=== PATIENT | female | born 1960 ===

== ENCOUNTER 2024-03-13 10:34 | Emergency (ER) | payer OTHER, SELFPAY ==
--- OUTSIDE RECORDS SUMMARY | 2024-03-13 10:39 | XMS REPORT | Continuity of Care Document ---
Author Name Unknown Address [address] [place] [address] [facility] Address [address] [place] [address] Care Team Providers Care Stone Breaker Name Role Phone Yancy Menjivar Primary Care Physi mike HANS FITZGERALD Attending Clinician Unava ilable SISSON_C Attending Clinician Unavailable [facility]_Black_D Attending Clinician Unavailab MOLLY Gunn Attending Clinician Unavailable Payam Olson Attending Clinician [phone] JORDAN QUISPE Attending Clinician Unavailable Naomy Villar Attending Clinician [phone] Radiology Attending Clinician Unavailable RADIOLOGY Attending Clinician Unavailable Hans Fitzgerald MD Attending Clinician [phone] Doctor Unassigned, [place] Attending Clinician U navailable Only, Adc Test Attending Clinician Unavailable Elsa Rivera MA Attending Clinician Unava ilable Pob, Adc Lab Main Attending Clinician UnavailHANS Trinidad Admitting Clinician Unava ilable SISSON_C Admitting Clinician Unavailable [facility]_Black_D Admitting Clinician Unavailab yuki Fitzgerald MD, Hans [place] Admitting Clinician [phone] Payers Payer Name Policy Type Policy Number Effective Date Expirati on Date Source [employer]BSTX PPO AND OUT OF STATE [id number] 2020 00:00:00 [employer] CHOICE POS II [id number] 2017 00:00:00 [place] [id number] 2020 00:00:00 Problems Condition Name Condition Details Condition Category Status Onset Date Resolution Date Last Treatment Date Treating Clinician Comments Source Hypothyroi dism Hypothyroi dism Problem Active 12-14 00:00: 00 [facility] Hyperchole sterolemia Hyperchole sterolemia Problem Active 12-14 00:00: 00 [facility] Hypertensi ve disorder Hypertensi ve Disorder Problem Active 12-14 00:00: 00 [facility] Closed displaced fracture of olecranon process with intraartic ular extension of right ulna Closed displaced fracture of olecranon process with intraartic ular extension of right ulna Disease Active 03-02 00:00: 00 [facility] Closed pelvic ring fracture Closed pelvic ring fracture Disease Active 03-02 00:00: 00 [facility] No known active problems No known active problems Disease [facility] Allergies, Adverse Reactions, Alerts Allergy Name Allergy Type Status Severity Reaction(s) Onset Date Inactive Date Treating Clinician Comments Source Insect Extract Allergy Skin Test Allergy to substanc e Active 02-25 00:00: 00 Other reaction( s): Other (see comments) [facility] NO KNOWN ALLERGIE S Drug Class Active [facility] Social History Social Habit Start Date Stop Date Quantity Comments Source Exposure to SARS-CoV-2 (event) 2022-03-24 00:00:00 2022-04-03 12:33:00 Not sure [facility] Alcohol intake 2020-01-22 00:00:00 2020-01-22 00:00:00 Current drinker of alcohol (finding) [facility] Tobacco use and exposure 2020-01-22 00:00:00 2020-01-22 00:00:00 Never used [facility] Sex Assigned At [birth year] 00:00:00 [facility] Smoking Status Start Date Stop Date Source Tobacco smoking consumption unknown [facility] Never smoker [facility] Medications Ordered Medication Name Filled Medication Name Start Date Stop Date Current Medication? Ordering Clinician Indication Dosage Frequency Signature (SIG) Comments Components Source gabapentin (Neurontin) 300 MG capsule 03-06 00:00: 00 04-06 04:59 :00 No [id number] 300mg [id number] 3D Take 1 capsule (300 mg total) by mouth in the morning and 1 capsule (300 mg total) at noon and 1 capsule (300 mg total) in the evening. [facility] methocarbam ol (Robaxin) 500 MG tablet 03-06 00:00: 00 03-17 04:59 :00 No [id number] 500mg Q.[id number] 3D Take 1 tablet (500 mg total) by mouth in the morning and 1 tablet (500 mg total) at noon and 1 tablet (500 mg total) in the evening. Do all this for 10 days. [facility] acetaminoph en-codeine (TYLENOL/CO DEINE #3) 300-30 MG tablet 03-06 00:00: 00 03-17 04:59 :00 No [id number] 1{tbl} Q6H Take 1 tablet by mouth every 6 (six) hours if needed for severe pain for up to 10 days. [facility] Levothyroxi ne 75 mcg capsule 01-20 17:28: 22 Yes Take by mouth. [facility] morpHINE injection 2 mg 01-20 16:10: 58 Yes 2mg 2 mg, Slow IV Push, Q5MIN PRN, 5 doses, Starting Sun01/21/20 at 1110, Until Discontinu ed, Routine, Pain (scale 4-6), PACU [facility] ondansetron (ZOFRAN (PF)) injection 4 mg 01-20 16:10: 58 Yes 4mg 4 mg, Slow IV Push, PRN, 1 dose, Starting Sun01/21/20 at 1110, Until Discontinu ed, Routine, Nausea and Vomiting (N/V), PACU [facility] sodium chloride 0.9 % irrigation solution 01-20 14:26: 00 Yes PRN, Starting Sun01/21/20 at 0926, Until Discontinu ed, Intra-op [facility] lactated ringers IV infusion 1,000 mL 01-20 12:30: 00 01-20 12:27 :00 No 1000mL at 20 mL/hr, 1,000 mL, IV Infusion, ONCE, 1 dose, Sun01/21/20 at 0730, Routine, DSU Pre-op [facility] atorvastati n 40 mg tablet atorvastati n 40 mg tablet No atorvastat in 40 mg tablet [facility] clonazepam 0.5 mg tablet Take 1 tablet 3 times a day by oral route as needed. clonazepam 0.5 mg tablet Take 1 tablet 3 times a day by oral route as needed. No 1 TID clonazepam 0.5 mg tablet Take 1 tablet 3 times a day by oral route as needed. [facility] cyclobenzap rine 5 mg tablet cyclobenzap rine 5 mg tablet No cyclobenza laura 5 mg tablet [facility] fenofibrate nanocrystal lized 48 mg tablet fenofibrate nanocrystal lized 48 mg tablet No fenofibrat e nanocrysta llized 48 mg tablet [facility] levothyroxi ne 50 mcg tablet levothyroxi ne 50 mcg tablet No levothyrox ine 50 mcg tablet [facility] lisinopril 5 mg tablet lisinopril 5 mg tablet No lisinopril 5 mg tablet [facility] meloxicam 7.5 mg tablet TAKE 1 TABLET BY MOUTH ONCE DAILY meloxicam 7.5 mg tablet TAKE 1 TABLET BY MOUTH ONCE DAILY No meloxicam 7.5 mg tablet TAKE 1 TABLET BY MOUTH ONCE DAILY [facility] sertraline 25 mg tablet Take 1 tablet every day by oral route for 60 days. sertraline 25 mg tablet Take 1 tablet every day by oral route for 60 days. No 1 Q1D sertraline 25 mg tablet Take 1 tablet every day by oral route for 60 days. [facility] triamcinolo ne acetonide 0.025 % topical cream APPLY CREAM TOPICALLY TO AFFECTED AREA TWICE DAILY NEEDED FOR ITCHY RASH triamcinolo ne acetonide 0.025 % topical cream APPLY CREAM TOPICALLY TO AFFECTED AREA TWICE DAILY NEEDED FOR ITCHY RASH No triamcinol one acetonide 0.025 % topical cream APPLY CREAM TOPICALLY TO AFFECTED AREA TWICE DAILY NEEDED FOR ITCHY RASH [facility] atorvastati n 40 mg tablet TAKE 1 TABLET BY MOUTH ONCE DAILY atorvastati n 40 mg tablet TAKE 1 TABLET BY MOUTH ONCE DAILY No atorvastat in 40 mg tablet TAKE 1 TABLET BY MOUTH ONCE DAILY [facility] compounded medication Semaglutide /b12 sq qw compounded medication Semaglutide /b12 sq qw No compounded medication Semaglutid e/b12 sq qw [facility] levothyroxi ne 50 mcg tablet TAKE 1 TABLET BY MOUTH ONCE DAILY ON AN EMPTY STOMACH FOR THYROID levothyroxi ne 50 mcg tablet TAKE 1 TABLET BY MOUTH ONCE DAILY ON AN EMPTY STOMACH FOR THYROID No levothyrox ine 50 mcg tablet TAKE 1 TABLET BY MOUTH ONCE DAILY ON AN EMPTY STOMACH FOR THYROID [facility] levothyroxi ne 75 mcg tablet TAKE 1 TABLET BY MOUTH ONCE DAILY levothyroxi ne 75 mcg tablet TAKE 1 TABLET BY MOUTH ONCE DAILY No levothyrox ine 75 mcg tablet TAKE 1 TABLET BY MOUTH ONCE DAILY [facility] lisinopril lisinopril No lisinopril [facility] lisinopril 5 mg tablet TAKE 1 TABLET BY MOUTH ONCE DAILY lisinopril 5 mg tablet TAKE 1 TABLET BY MOUTH ONCE DAILY No lisinopril 5 mg tablet TAKE 1 TABLET BY MOUTH ONCE DAILY [facility] ondansetron 4 mg disintegrat ing tablet Place 2 tablets twice a day by translingua l route for 10 days. ondansetron 4 mg disintegrat ing tablet Place 2 tablets twice a day by translingua l route for 10 days. No 2 BID ondansetro n 4 mg disintegra ting tablet Place 2 tablets twice a day by translingu al route for 10 days. [facility] sertraline 50 mg tablet TAKE 1 TABLET BY MOUTH ONCE DAILY sertraline 50 mg tablet TAKE 1 TABLET BY MOUTH ONCE DAILY No sertraline 50 mg tablet TAKE 1 TABLET BY MOUTH ONCE DAILY [facility] Vital Signs Vital Name Observation Time Observation Value Comments Sriram candelario BMI (Body Mass Index) 2023-10-11 00:00:00 27.7 kg/m2 [facility] Body Weight 2023-10-11 00:00:00 2426 [oz_av] [facility] Height 2023-10-11 00:00:00 62 [in_i] [facility] BP Diastolic 2022-12-14 00:00:00 81 mm[Hg] [facility] Height 2022-12-14 00:00:00 62 [in_i] [facility] BMI (Body Mass Index) 2022-12-14 00:00:00 30.1 kg/m2 [facility] BP Systolic 2022-12-14 00:00:00 150 mm[Hg] [facility] Body Weight 2022-12-14 00:00:00 2634 [oz_av] [facility] BP Diastolic 2021-10-13 00:00:00 86 mm[Hg] [facility] Height 2021-10-13 00:00:00 63 [in_i] [facility] BMI (Body Mass Index) 2021-10-13 00:00:00 28.8 kg/m2 [facility] BP Systolic 2021-10-13 00:00:00 131 mm[Hg] [facility] Body Weight 2021-10-13 00:00:00 162.4 [lb_av] [facility] BP Diastolic 2021-09-01 00:00:00 82 mm[Hg] [facility] Height 2021-09-01 00:00:00 63 [in_i] [facility] BMI (Body Mass Index) 2021-09-01 00:00:00 29.1 kg/m2 [facility] BP Systolic 2021-09-01 00:00:00 122 mm[Hg] [facility] Body Weight 2021-09-01 00:00:00 164 [lb_av] [facility] Systolic blood pressure 2020-01-21 17:10:00 128 mm[Hg] [facility] Diastolic blood pressure 2020-01-21 17:10:00 76 mm[Hg] [facility] Heart rate 2020-01-21 17:10:00 79 /min [facility] Respiratory rate 2020-01-21 17:10:00 13 /min [facility] Oxygen saturation in Arterial blood by Pulse oximetry 2020-01-21 17:10:00 96 /min [facility] Body temperature 2020-01-21 16:14:00 36.5 Anna [facility] Body weight 2020-01-21 12:22:00 72.576 kg [facility] BMI 2020-01-21 12:22:00 29.26 kg/m2 [facility] Body height 2020-01-20 15:00:00 157.5 cm [facility] Procedures Procedure Date / Time Performed Performing Clinician Source MAMMO, screening, digital, bilateral 2021-09-01 00:00:00 [facility] US PELVIS COMPLETE WITH TRANSVAGINAL 2020-06-18 16:51:30 Requisition, Paper [facility] FL TIME OR (NON-REPORTABLE) 2020-01-21 15:46:36 Hans Fitzgerald [facility] DAY SURGERY - ADC 2020-01-21 05:01:00 Doctor Joan ssigned, [place] [facility] CONSENT/REFUSAL FOR DIAGNOSIS AND TREATMENT 2020-01-19 19:34:40 Doctor Unassigned, [place] [facility] ASSIGNMENT OF BENEFITS 2020-01-19 19:34:26 Docto r Unassigned, [place] [facility] Procedure on Elbow 2018-07-09 00:00:00 [facility] 2011-07-09 [facility] 1987-06-07 00:00:00 [facility] Caesarean Section 1985-08-04 00:00:00 [facility] Caesarean Section 1982-12-12 00:00:00 [facility] Plan of Care Planned Activity Planned Date Details Comments Source Diagnostic Test Pending 2021-09-01 00:00:00 Cytomegalovirus Ab [Titer] in Serum or Plasma by Latex agglutination [code = 5121-9] [facility] Diagnostic Test Pending 2021-09-01 00:00:00 Weight of 24 hour Specimen [code = 3153-4] [facility] Encounters Start Date/Time End Date/Time Encounter Type Admission Type Attending Clinicians Care Facility Care Department Encounter ID Source 2022-05-22 12:13:55 Outpatient [facility] [id number] [facility] 2021-08-03 14:28:37 Outpatient [facility] [id number] [facility] 2021-05-06 06:30:06 Outpatient HANS CALVERT [facility] [id number] [facility] 2023-10-11 00:00:00 2023-10-11 00:00:00 Syeda Arriaza, MSN, SHAFTING CLEANER, TREE FELLER-C: [address], [address] [place] [address] , Ph. MIGDALIADeepali [facility], Syeda Arriaza, MSN, TREE FELLER-C [id number] 2023-09-12 00:00:00 2023-09-12 00:00:00 [facility] [id number] 2023-08-09 00:00:00 2023-08-09 00:00:00 Outpatient [facility] [id number] [facility] 2023-08-02 00:00:00 2023-08-02 00:00:00 Outpatient SISSON_C [facility] [id number] [facility] 2023-06-06 00:00:00 2023-06-06 00:00:00 Outpatient SISSON_C [facility] [id number] 2023-04-27 00:00:00 2023-04-27 00:00:00 [facility] [id number] 2023-02-05 00:00:00 2023-02-05 00:00:00 Outpatient SISSON_C [facility] [id number] [facility] 2022-12-14 00:00:00 2022-12-14 00:00:00 Outpatient SISSON_C [facility] [id number] [facility] 2022-12-14 00:00:00 2022-12-14 00:00:00 Syeda Arriaza, MSN, SHAFTING CLEANER, TREE FELLER-C: [address], [address], [place] [address] , Ph. [facility], Syeda Arriaza, MSN, TREE FELLER-C [id number] [facility] 2022-11-23 00:00:00 2022-11-23 00:00:00 Outpatient [facility]_ Black_D PRIV PRIV [id number] [facility] 2022-11-21 00:00:00 2022-11-21 00:00:00 Outpatient SISSON_C [facility] [id number] [facility] 2022-11-17 00:00:00 2022-11-17 00:00:00 Outpatient [facility]_ Black_D PRIV PRIV [id number] [facility] 2022-11-17 00:00:00 2022-11-17 00:00:00 Outpatient [facility]_ Black_D PRIV PRIV [id number] [facility] 2022-11-17 00:00:00 2022-11-17 00:00:00 Outpatient [facility]_ Black_D PRIV PRIV [id number] [facility] 2022-05-22 13:00:00 2022-05-22 13:24:12 Outpatient [facility] [id number] [facility] 2022-05-22 12:45:00 2022-05-22 13:24:12 Outpatient MOLLY SPAULDING [facility] [id number] [facility] 2022-04-03 12:45:00 2022-04-03 13:19:43 Office Visit Molly Spaulding [facility] [id number] [id number] [facility] 2022-04-03 12:30:00 2022-04-03 13:19:43 Outpatient [facility] [id number] [facility] 2022-03-06 12:30:00 2022-03-06 12:30:00 Office Visit Payam Lamar [facility] [id number] [id number] [facility] 2022-03-06 12:15:00 2022-03-06 12:24:25 Outpatient [facility] [id number] [facility] 2022-02-19 09:00:00 2022-02-19 09:00:00 Outpatient JORDAN QUISPE [facility] [id number] [facility] 2021-12-21 02:04:00 2021-12-21 02:04:00 Outpatient [facility] Black_D PRIV PRIV [id number] [facility] 2021-12-21 00:00:00 2021-12-21 00:00:00 Outpatient [facility]_ Black_D PRIV PRIV [id number] [facility] 2021-12-16 04:55:00 2021-12-16 04:55:00 Outpatient [facility]_ Black_D PRIV PRIV [id number] [facility] 2021-11-18 06:43:00 2021-11-18 06:43:00 Outpatient [facility]_ Black_D PRIV PRIV [id number] [facility] 2021-10-13 01:24:00 2021-10-13 01:24:00 Outpatient [facility]_ Black_D PRIV PRIV [id number] [facility] 2021-10-13 00:00:00 2021-10-13 00:00:00 Outpatient Naomy Villar [facility] PRIV [id number] 2021-10-13 00:00:00 2021-10-13 00:00:00 Naomy Villar MD: [address] [place] [address] , Ph. [facility] - GC_[facility]_ [place] [facility] [id number] [facility] 2021-09-02 12:57:00 2021-09-02 12:57:00 Outpatient [facility]_ Black_D PRIV PRIV [id number] [facility] 2021-09-01 04:58:00 2021-09-01 04:58:00 Outpatient [facility]_ Black_D PRIV PRIV [id number] [facility] 2021-09-01 00:00:00 2021-09-01 00:00:00 Naomy Villar MD: [address] [place] [address] , Ph. [facility] - [facility]_ [facility] [id number] [facility] 2021-09-01 00:00:00 2021-09-01 00:00:00 Outpatient Naomy Villar [facility] PRIV [id number] 2021-08-25 12:10:00 2021-08-25 12:10:00 Outpatient [facility]_ Black_D PRIV PRIV [id number] [facility] 2021-08-17 10:48:00 2021-08-17 10:48:00 Outpatient [facility]_ Black_D PRIV PRIV [id number] [facility] 2020-06-18 09:51:51 2020-06-18 23:59:00 Hospital Encounter Radiology [facility] [id number] [facility] 2020-06-18 00:00:00 2020-06-18 00:00:00 Outpatient R RADIOLOGY [facility] [id number] [facility] 2020-01-21 06:58:00 2020-01-21 12:25:00 Hospital Encounter Hans Fitzgerald Rsutam [facility] [id number] [facility] 2020-01-21 00:00:00 2020-01-21 00:00:00 Orders Only Doctor Unassigned, [place] [facility] [id number] [facility] 2020-01-20 14:45:00 2020-01-20 14:45:00 Outpatient R HANS FITZGERALD [facility] [id number] [facility] 2020-01-20 09:55:37 2020-01-20 10:10:37 Laboratory Only Only, Adc Test Hans Fitzgerald Rustam [facility] [id number] [facility] 2020-01-20 00:00:00 2020-01-20 00:00:00 Telephone Elsa Rivera [facility] [id number] [id number] [facility] 2020-01-19 14:45:00 2020-01-19 14:45:00 Outpatient R HANS FITZGERALD [facility] [id number] [facility] 2020-01-19 14:29:21 2020-01-19 14:44:21 Swaging Machine Operator Visit Pob, Adc Lab Main Hans Fitzgerald [facility] [id number] [facility] Results Test Description Test Time Test Comments Results Result Co mments Source Lauren Gaitan PELVIS COMPLETE WITH [id number] 17:37:12Essentially normal pelvic ultrasound.PELVIC ULTRASOUND (TRANSVAGINAL AND LIMITED TRANSABDOMINAL) TECHNIQUE: Transvaginal and limited transabdominal sonography of the pelviswas performed. INDICATION: Abdominal pain, LLQ (left lower quadrant). COMPARISON: None available FINDINGS: Uterus measures 7.5 x 2.3 x 4.4 cm. Endometrial echo complexmeasures 2-3 mm in thickness. No evidence of scar in the anteriorlower uterine segment. The cervix is unremarkable. Mildly prominentappearance of anterior cervix is probably artifactual. Ovaries are normal in size and configuration. The right ovary measures 2.2x 1.5 x 1.8 cm. The left ovary measures 1.7 x 1.4 x 1.4 cm. No adnexalmasses identified. ? There is no evidence of intraperitoneal fluid. [facility], Radiant Results Inft User - 06/18/2020 11:38 AM CSTPELVIC ULTRASOUND (TRANSVAGINAL AND LIMITED TRANSABDOMINAL)TECHNIQUE: Transvaginal and limitedtransabdominal sonography of the pelviswas performed.INDICATION: Abdominal pain, LLQ (left lower blair drant).COMPARISON: None availableFINDINGS: Uterus measures 7.5 x 2.3 x 4.4 cm. Endometrial echo complexmeasures 2-3 mm in thickness. No evidence of scar in the anteriorlower uterine segment. The cervix is unremarkable. Mildly prominentappearance of anterior cervix is probably artifactual.Ovaries are normal in size and configuration. The right ovary measures 2.2x 1.5 x 1.8 cm. The left ovary measures 1.7 x 1.4 x 1.4 cm. No adnexalmasses identified. There is no evidence of intraperitoneal fluid.IMPRESSIONEssentially normal pelvic ultrasound.[facility] 2020-01-21 15:47:34These images do not require a Radiology diagnostic report. [facility]
[2024-03-13] MEDS ORDERED: HYDROCODONE/APAP 5/325 MG TAB ONE (12:32)
--- NOTE | 2024-03-13 12:42 | EDPHYS ---
Physician Documentation [facility] Name: Ellen Vasquez Age: 63 yrs Sex: Female : 1960 Arrival Date: 03/13/2024 Time: 10:34 Bed 19 Private MD: ED Physician Patsy Swenson HPI: 03/13 11:13 This 63 yrs old Female presents to ER via Ambulatory with complaints of Fall Injury, sp3 Arm Injury. 11:13 63-year-old female with history of hypertension now presents with right shoulder pain sp3 after mechanical ground-level fall tripping over a rug yesterday evening at home. No other secondary injury, head injury or loss of consciousness. Review of systems negative for headache, neck pain, chest pain, back pain, abdominal pain, other extremity pain, or any other injury or signs or symptoms on ROS at this time.. Historical: - Allergies: 10:53 No Known Allergies; dd2 - PMHx: 10:53 Hypertensive disorder; Hypothyroidism; dd2 - PSHx: 10:53 Rt elbow sx; dd2 - Immunization history:: Adult Immunizations unknown. - Infectious Disease History:: Denies. - Social history:: Smoking status: Patient denies any tobacco usage or history of. ROS: 11:13 Constitutional: Negative for fever, chills, and weight loss, Eyes: Negative for injury, sp3 pain, redness, and discharge, ENT: Negative for injury, pain, and discharge, Neck: Negative for injury, pain, and swelling, Cardiovascular: Negative for chest pain, palpitations, and edema, Respiratory: Negative for shortness of breath, cough, wheezing, and pleuritic chest pain, Abdomen/GI: Negative for abdominal pain, nausea, vomiting, diarrhea, and constipation, Back: Negative for injury and pain, Skin: Negative for injury, rash, and discoloration, Neuro: Negative for headache, weakness, numbness, tingling, and seizure, Psych: Negative for depression, anxiety, suicide ideation, homicidal ideation, and hallucinations, Allergy/Immunology: Negative for hives, rash, and allergies, Endocrine: Negative for neck swelling, polydipsia, polyuria, polyphagia, and marked weight changes, Hematologic/Lymphatic: Negative for swollen nodes, abnormal bleeding, and unusual bruising, 11:13 All other systems are negative, Exam: 11:13 Constitutional: This is a well developed, well nourished patient who is awake, alert, sp3 and in no acute distress. Head/Face: Normocephalic, atraumatic. Eyes: Pupils equal round and reactive to light, extra-ocular motions intact. Lids and lashes normal. Conjunctiva and sclera are non-icteric and not injected. Cornea within normal limits. Periorbital areas with no swelling, redness, or edema. Neck: Trachea midline, no thyromegaly or masses palpated, and no cervical lymphadenopathy. Supple, full range of motion without nuchal rigidity, or vertebral point tenderness. No Meningismus. Chest/axilla: Normal chest wall appearance and motion. Nontender with no deformity. No lesions are appreciated. Cardiovascular: Regular rate and rhythm with a normal S1 and S2. No gallops, murmurs, or rubs. Normal PMI, no JVD. No pulse deficits. Respiratory: Lungs have equal breath sounds bilaterally, clear to auscultation and percussion. No rales, rhonchi or wheezes noted. No increased work of breathing, no retractions or nasal flaring. Abdomen/GI: Soft, non-tender, with normal bowel sounds. No distension or tympany. No guarding or rebound. No evidence of tenderness throughout. Neuro: Awake and alert, GCS 15, oriented to person, place, time, and situation. Cranial nerves II-XII grossly intact. Motor strength 5/5 in all extremities. Sensory grossly intact. Cerebellar exam normal. Normal gait. Psych: Awake, alert, with orientation to person, place and time. Behavior, mood, and affect are within normal limits. 11:13 Musculoskeletal/extremity: Right shoulder and proximal humerus pain on the right arm. Distal neurovascular exam is normal.. Vital Signs: 10:47 BP 123 / 74; Pulse 75; Resp 16; Temp 97.2(TE); Pulse Ox 99% ; Weight 65.77 kg; Height 5 dd2 ft. 3 in. ; 12:16 BP 129 / 71; Pulse 72; Resp 17; Pulse Ox 99% on R/A; ld1 10:47 Body Mass Index 25.69 (65.77 kg, 160.02 cm) dd2 MDM: 10:54 Patient medically screened. sp3 11:14 Data reviewed: vital signs, nurses notes, radiologic studies. ED course: 63-year-old sp3 female with right shoulder pain. Differential diagnosis includes shoulder contusion, humerus fracture, clavicular fracture, or other orthopedic abnormality. X-ray pending disposition pending workup and patient course.. 12:40 ED course: Lateral humeral head avulsion fracture noted. Patient in a sling and will sp3 follow-up with Dr. Albarran's and her orthopedist. Norman given as well. Will safely discharged home on tramadol at this time.. 03/13 11:08 Order name: Shoulder Right (2 View) XRAY sp3 03/13 12:30 Order name: Sling; Complete Time: 12:35 sp3 Administered Medications: 12:35 Drug: HYDROcodone-acetaminophen PO 5 mg-325 mg 2 tabs PO once Route: PO; ld1 13:15 Follow up: Response: No adverse reaction aa5 Disposition Summary: 03/13/24 12:41 Discharge Ordered Notes: Location: Home sp3 Condition: Stable sp3 Diagnosis - Humerus avulsion fracture right side sp3 Followup: sp3 - With: Hans Fitzgerald MD - When: Upon discharge from the Emergency Department - Reason: Recheck today's complaints, Continuance of care Forms: - Medication Reconciliation Form sp3 - Antibiotic Education sp3 - Prescription Opioid Use sp3 - Patient Portal Instructions sp3 - Leadership Thank You Letter sp3 Signatures: Dispatcher [employer] EDMelvina Edmond RN RN ld1 Patsy Swenson MD MD sp3 SUSIE CLAROS RN RN dd2 Aurelia Ovalles RN aa5
--- NOTE | 2024-03-13 12:42 | ER ---
Nurse's Notes [facility] Name: Ellen Vasquez Age: 63 yrs Sex: Female : 1960 Arrival Date: 03/13/2024 Time: 10:34 Bed 19 Private MD: Diagnosis: Humerus avulsion fracture right side Presentation: 03/13 10:47 Chief complaint: Patient states: Pt states walking through home last night and tripped dd2 over rug and landed on rt shoulder and upper rt arm. Pt states pain to Rt upper shoulder to Rt upper arm. Coronavirus screen: At this time, the client does not indicate any symptoms associated with coronavirus-19. Ebola Screen: No symptoms or risks identified at this time. Initial Sepsis Screen: Does the patient meet any 2 criteria? No. Patient's initial sepsis screen is negative. Does the patient have a suspected source of infection? No. Patient's initial sepsis screen is negative. Risk Assessment: Do you want to hurt yourself or someone else? Patient reports no desire to harm self or others. Onset of symptoms was March 12, 2024. 10:47 Method Of Arrival: Ambulatory dd2 10:47 Acuity: EDUARDO 3 dd2 Triage Assessment: 10:53 General: Appears uncomfortable, Behavior is calm, cooperative, appropriate for age. dd2 Pain: Complains of pain in right clavicle, rt shoulder, rt upper arm Pain currently is 5 out of 10 on a pain scale. Aggravated by increased activity, repositioning. Historical: - Allergies: 10:53 No Known Allergies; dd2 - PMHx: 10:53 Hypertensive disorder; Hypothyroidism; dd2 - PSHx: 10:53 Rt elbow sx; dd2 - Immunization history:: Adult Immunizations unknown. - Infectious Disease History:: Denies. - Social history:: Smoking status: Patient denies any tobacco usage or history of. Screenin:10 [facility] ED Fall Risk Assessment (Adult) History of falling in the last 3 months, ld1 including since admission No falls in past 3 months (0 pts) Confusion or Disorientation No (0 pts) Intoxicated or Sedated No (0 pts) Impaired Gait No (0 pts) Mobility Assist Device Used No (0 pt) Altered Elimination No (0 pt) Score/Fall Risk Level 0 - 2 = Low Risk Oriented to surroundings, Maintained a safe environment, Educated pt \T\ family on fall prevention, incl call for assistance when getting out of bed, Assessed \T\ reinforced patient's understanding of fall precautions, Provided non-skid footwear, Hourly rounding (assess needs \T\ fall precautionary measures) done, Used ambulatory aids as needed (educated on \T\ assisted with), Used gait belt as appropriate. Abuse screen: Denies threats or abuse. Denies injuries from another. Nutritional screening: No deficits noted. Tuberculosis screening: No symptoms or risk factors identified. Assessment: 11:10 General: Appears in no apparent distress. comfortable, Behavior is calm, cooperative, ld1 appropriate for age. Pain: Complains of pain in right arm Pain does not radiate. Pain currently is 8 out of 10 on a pain scale. Quality of pain is described as throbbing, Pain began suddenly, Is continuous. Neuro: Level of Consciousness is awake, alert, obeys commands, Oriented to person, place, time, situation, Appropriate for age. Cardiovascular: Capillary refill < 3 seconds Patient's skin is warm and dry. Respiratory: Airway is patent Respiratory effort is even, unlabored. GI: Abdomen is flat, non-distended. : No signs and/or symptoms were reported regarding the genitourinary system. EENT: No signs and/or symptoms were reported regarding the EENT system. Derm: No signs and/or symptoms reported regarding the dermatologic system. Musculoskeletal: No signs and/or symptoms reported regarding the musculoskeletal system. 13:15 Reassessment: Patient is alert, oriented x 3, equal unlabored respirations, skin aa5 warm/dry/pink. Vital Signs: 10:47 BP 123 / 74; Pulse 75; Resp 16; Temp 97.2(TE); Pulse Ox 99% ; Weight 65.77 kg; Height 5 dd2 ft. 3 in. ; 12:16 BP 129 / 71; Pulse 72; Resp 17; Pulse Ox 99% on R/A; ld1 10:47 Body Mass Index 25.69 (65.77 kg, 160.02 cm) dd2 ED Course: 10:39 Patient arrived in ED. mg5 10:52 Patsy Swenson MD is Attending Physician. sp3 10:53 Triage completed. dd2 10:53 Arm band placed on right wrist. Patient placed in an exam room, on a stretcher, on dd2 pulse oximetry, Patient notified of wait time. 11:05 Melvina Cortez, RN is Primary Nurse. ld1 11:10 Patient has correct armband on for positive identification. Placed in gown. Bed in low ld1 position. Call light in reach. Side rails up X2. Pulse ox on. NIBP on. Door closed. Noise minimized. Warm blanket given. 11:10 No provider procedures requiring assistance completed. ld1 12:40 Hans Fitzgerald MD is Referral Physician. sp3 13:06 Shoulder Right (2 View) XRAY In Process Unspecified. EDMS 13:15 Provided Education on: fall precautions. kj2 13:15 Patient did not have IV access during this emergency room visit. aa5 Administered Medications: 12:35 Drug: HYDROcodone-acetaminophen PO 5 mg-325 mg 2 tabs PO once Route: PO; ld1 13:15 Follow up: Response: No adverse reaction aa5 Medication: 13:15 VIS not applicable for this client. kj2 Outcome: 12:41 Discharge ordered by . sp3 13:14 Discharged to home ambulatory, kj2 13:14 Condition: stable 13:14 Discharge instructions given to patient, Instructed on discharge instructions, follow up and referral plans. Demonstrated understanding of instructions, follow-up care, 13:15 Patient left the ED. aa5 Signatures: Dispatcher [employer] Aurelia Olivera, RN RN aa5 Melvina Cortez, RN RN ld1 Patsy Swenson MD MD sp3 Alycia Guerra mg5 Maegan Mendosa RN RN kj2 SUSIE CLAROS RN RN dd2
[2024-03-13 13:34] VITALS: TEMP 97.2; O2SAT 99
[2024-03-13 13:36] VITALS: BP 129/71
--- NOTE | 2024-03-13 13:44 | RAD REPORT ---
EXAM DESCRIPTION: Shoulder Right 2 View - 03/13/2024 1:04 pm CLINICAL HISTORY: fall trauma COMPARISON: No comparisons TECHNIQUE: Internal and external rotation views of the right shoulder were obtained. FINDINGS: Comminuted fractures of the humeral head, including a mildly displaced component at the ba se of the greater tuberosity. No dislocation. AC joint shows mild degenerative changes. No acute or s uspicious findings. IMPRESSION: Comminuted right humeral head fractures.
== END 2024-03-13 13:15 | disposition home or self-care (01) ==
LOC: ER 10:34
DX: S42.251A Displaced fracture of greater tuberosity of right humerus, initial encounter for closed fracture (principal); S42.201A Unspecified fracture of upper end of right humerus, initial encounter for closed fracture; W18.09XA Striking against other object with subsequent fall, initial encounter; Y92.009 Unspecified place in unspecified non-institutional (private) residence as the place of occurrence of the external cause
CPT/HCPCS: 99283